=== PATIENT | female | born 1955 | race Caucasian/White ===

== ENCOUNTER 2021-05-19 12:36 | Emergency (ER) | payer MEDICARE, OTHER ==
[~2021-05-19] VITALS: Ht 167.6 cm; Wt 81.6 kg
[2021-05-19 13:18] LABS: BASO % 0.3 % (0.0-1.0); EOS % 0.3 % (1.0-4.0); HEMATOCRIT 44.2 % (37.0-47.0); LYMPH # 1.9 10*3/uL (1.3-4.4); LYMPH % 25.5 % (27.0-41.0); MEAN CELL VOLUME 90.6 fl (81.0-99.0); MEAN CORPUSCULAR HGB 30.5 pg (27.0-31.0); MEAN CORPUSCULAR HGB CONC 33.7 g/dl (33.0-37.0); MEAN PLATELET VOLUME 9.7 fl (9.6-12.3); MONO # 0.7 10*3/uL (0.1-1.0); MONO % 9.1 % (3.0-9.0); NEUT # 4.9 10*3/uL (2.3-7.9); NEUT % 64.7 % (47.0-73.0); PLATELET COUNT AUTOMATED 225 10*3/uL (130-400); RED BLOOD COUNT 4.88 10*6/uL (4.10-5.10); RED CELL DISTRI WIDTH 12.2 % (0-14.5); WHITE BLOOD COUNT 7.6 10*3/uL (4.8-10.8)
[2021-05-19 13:34] LABS: ALBUMIN 3.7 gm/dl (3.1-4.5); ALKALINE PHOSPHATASE 64 U/L (45-117); BUN 7 mg/dl (7-24); CHLORIDE 110 mmol/L (98-107); CREATININE 0.66 mg/dL (0.55-1.02); LIPASE 77 U/L (73-393); POTASSIUM 3.9 mmol/L (3.5-5.1); SGOT/AST 18 IU/L (3-35); SGPT/ALT 28 U/L (12-78); SODIUM 138 mmol/L (136-145); TOTAL PROTEIN 7.1 gm/dL (6.4-8.2)
[2021-05-19 13:34] LABS: BILIRUBIN Negative (Negative); BLOOD Trace-Lysed (Negative); CLARITY Clear (Clear); COLOR Yellow (Yellow); GLUCOSE Negative (Negative); KETONE Negative (Negative); LEUKO ESTERASE Negative (Negative); NITRITE Negative (Negative); SPECIFIC GRAVITY <= 1.005 (1.001-1.030); UROBILINOGEN 0.2 E.U./dl (0.0-1.0)
[2021-05-19 13:42] LABS: WBC 0-2 wbc/hpf (0-5)
[2021-05-19] MEDS ORDERED: CIPRO500 MG PO (17:04)
[2021-05-19] MEDS ORDERED: METRONIDAZOLE500 M1 PO (17:04)
== END 2021-05-19 17:12 | disposition home or self-care (01) ==
LOC: ED 12:36
PROVIDERS: Physician Assistant
DX: K52.9 Noninfective gastroenteritis and colitis, unspecified (principal); Z88.0 Allergy status to penicillin; Z88.1 Allergy status to other antibiotic agents; Z91.040 Latex allergy status

== ENCOUNTER 2023-08-31 13:59 | Emergency (ER) | payer MEDICARE ==
[~2023-08-31] VITALS: Ht 165.1 cm; Wt 79.4 kg
[~2023-08-31 13:59] MED LIST: CIPRO500 MG PO; METRONIDAZOLE500 M1 PO
[2023-08-31] MEDS ORDERED: SODIUM CHLORIDE 0.9% 1,000 ML IV ONE (14:10)
[2023-08-31] MEDS ORDERED: MORPHINE Sulfate 2 MG/ML SYR IV ONE (14:10)
[2023-08-31] MEDS ORDERED: Ondansetron Hydrochloride 4 MG/2 ML VIAL IV ONE (14:10)
[2023-08-31 14:31] LABS: BASO # 0.1 10*3/uL (0.0-0.1); BASO % 0.7 % (0.0-1.0); EOS # 0.1 10*3/uL (0.0-0.4); EOS % 1.2 % (1.0-4.0); HEMATOCRIT 39.8 % (37.0-47.0); LYMPH # 2.4 10*3/uL (1.3-4.4); LYMPH % 29.9 % (27.0-41.0); MEAN CELL VOLUME 95.2 fl (81.0-99.0); MEAN CORPUSCULAR HGB 31.1 pg (27.0-31.0); MEAN CORPUSCULAR HGB CONC 32.7 g/dl (33.0-37.0); MEAN PLATELET VOLUME 8.8 fl (9.6-12.3); MONO # 0.6 10*3/uL (0.1-1.0); MONO % 7.1 % (3.0-9.0); NEUT % 60.9 % (47.0-73.0); PLATELET COUNT AUTOMATED 338 10*3/uL (130-400); RED BLOOD COUNT 4.18 10*6/uL (4.10-5.10); RED CELL DISTRI WIDTH 12.4 % (0-14.5); WHITE BLOOD COUNT 8.2 10*3/uL (4.8-10.8)
[2023-08-31 14:54] LABS: ACT PARTIAL THROMBO TIME 30.8 SECONDS (20.0-32.1); ALKALINE PHOSPHATASE 70 U/L (46-116); BUN 8 mg/dl (9-23); CHLORIDE 109 mmol/L (98-107); POTASSIUM 3.7 mmol/L (3.4-5.1); SGPT/ALT 13 U/L (5-49); TOTAL PROTEIN 6.6 gm/dL (6.0-8.0)
[2023-08-31] MEDS ORDERED: HYDROCODONE-AC1 EAC1 PO (15:12)
== END 2023-08-31 15:51 | disposition home or self-care (01) ==
LOC: ED 13:59
PROVIDERS: Emergency Medicine
DX: R07.89 Other chest pain (principal); I25.10 Atherosclerotic heart disease of native coronary artery without angina pectoris; I10 Essential (primary) hypertension; E78.5 Hyperlipidemia, unspecified; Z88.0 Allergy status to penicillin; Z88.2 Allergy status to sulfonamides; Z88.8 Allergy status to other drugs, medicaments and biological substances; Z98.890 Other specified postprocedural states

== ENCOUNTER 2024-04-22 14:53 | Emergency (ER) | payer MEDICARE ==
[~2024-04-22] VITALS: Ht 165.1 cm; Wt 74.8 kg
[~2024-04-22 14:53] MED LIST changes: +HYDROCODONE-AC1 EAC1 PO
[2024-04-22] MEDS ORDERED: LIPITOR80 MG PO (16:25)
[2024-04-22] MEDS ORDERED: Clopidogrel75 MG PO (16:26)
[2024-04-22] MEDS ORDERED: Imdur SA60 MG PO (16:26)
[2024-04-22] MEDS ORDERED: ASPIRIN CHEWABL81 MG PO (16:26)
[2024-04-22] MEDS ORDERED: NEBIVOLOL HCL5 MG PO (16:26)
[2024-04-22] MEDS ORDERED: TRAMADOL HCL50 MG PO (16:27)
[2024-04-22] MEDS ORDERED: methylPREDNISolone sod succ 125 MG VIAL IM ONE (17:35)
[2024-04-22] MEDS ORDERED: METHOCARBAMOL 500 MG TAB PO ONE (17:35)
[2024-04-22] MEDS ORDERED: Ketorolac Tromethamine 15 MG/ML VIAL IM ONE (17:35)
[2024-04-22] MEDS ORDERED: PREDNISONE50 MG PO (17:36)
[2024-04-22] MEDS ORDERED: METHOCARBAMOL500 M1 PO (17:36)
== END 2024-04-22 18:16 | disposition home or self-care (01) ==
LOC: ED 14:53
DX: M62.838 Other muscle spasm (principal); M54.2 Cervicalgia; F17.200 Nicotine dependence, unspecified, uncomplicated; Z88.0 Allergy status to penicillin; Z88.2 Allergy status to sulfonamides; Z79.899 Other long term (current) drug therapy; Z79.82 Long term (current) use of aspirin